=== PATIENT | female | born 1985 | race Caucasian/White ===

== ENCOUNTER 2018-08-02 05:35 | Day surgery (SDC) | payer MEDICARE ==
[2018-08-02] VITALS (12 sets, daily range): BP systolic 109–160; BP diastolic 70–93; PULSE 54–66; RESP 12–28; Ht 160 cm; Wt 86.7 kg
[~2018-08-02] VITALS: Ht 160 cm; Wt 86.7 kg
[2018-08-02] MEDS ORDERED: BUPIVACAINE 0.5%/EPI (SDV) 30 ML INJ ONE (06:58)
--- NOTE | 2018-08-02 07:20 | PREAC ---
Date/Time of Note Date/Time of Note DATE: 08/02/18 TIME: 07:17 Anesthesia Eval and Record Evaluation Time Pre-Procedure Interview DATE: 08/02/18 TIME: 07:17 Age 33 Sex female NPO: 8 hrs Preoperative diagnosis cholelithiasis Planned procedure lap avinash Past Medical History Past Medical History: Includes Pulm: Smoking Hx (quit 2 m ago), Asthma GI: Obesity Surgery & Anesthesia Issues No known issue Meds Anticoagulation: No Beta Marga within 24 hr: No Reason Beta Marga not given: Pt. not on B-Marga No Active Prescriptions or Reported Meds Meds reviewed: Yes Allergies Coded Allergies: Penicillins (Verified Allergy, Severe, ANAPHYLAXIS, 08/02/18) PER PT Allergies Reviewed: Yes Labs/Studies Labs Reviewed: Reviewed by anesthesiologist test: Negative Studies: ECG (sr), CXR (nl) Pre-procedure Exam Last vitals Vital Signs Date Temp Pulse Resp B/P (MAP) Pulse Ox O2 O2 Flow FiO2 Time Delivery Rate 08/02/18 98.0 66 18 109/70 98 Room Air 07:08 (83) Airway: Adequate thyromental dist Mallampati: Mallampati II Teeth: Normal Lung: Normal Heart: Normal ASA Physical Status ASA physical status: 2 Emergency: None Planned Anesthetic General/MAC: ETT Nerve block: TAP (bilateral) Planned Pain Management Single shot nerve block Pre-operative Attestations Prior to commencing anesthesia and surgery, the patient was re-evaluated, there was verification of: *The patient's identity *The results of appropriate recent lab work and preoperative vital signs *The above evaluation not changing prior to induction *Anesthetic plan, risk benefits, alternative and complications discussed with patient/family; questions answered; patient/family understands, accepts and wishes to proceed. MAO KAPADIA MD Aug 02, 2018 07:20
[2018-08-02] MEDS ORDERED: MEPERIDINE 25 MG INJ IV PRN (07:30)
[2018-08-02] MEDS ORDERED: ONDANSETRON 4 MG INJ IV PRN ×2 (07:30→09:00)
[2018-08-02] MEDS ORDERED: LABETALOL HCL 20MG INJ IV PRN (07:30)
[2018-08-02] MEDS ORDERED: DIPHENHYDRAMINE 50 MG INJ IV PRN (07:30)
[2018-08-02] MEDS ORDERED: hydrALAzine 20 MG INJ IV PRN (07:30)
[2018-08-02] MEDS ORDERED: HYDROmorphONE 1 MG/5 ML IV SYRINGE IV PRN ×3 (07:30)
[2018-08-02] MEDS ORDERED: KETOROLAC 30 MG INJ IV PRN ×2 (07:30→09:00)
--- NOTE | 2018-08-02 07:32 | HPN ---
Date/Time of Note Date/Time of Note DATE: 08/02/18 TIME: 07:32 Interval H&P Admission Note Pt. seen H&P reviewed: No system changes RENUKA ALVARADO MD Aug 02, 2018 07:32
[2018-08-02] MEDS ORDERED: MIDAZOLAM 1 MG/ML 2 ML INJ ONE (07:34)
[2018-08-02] MEDS ORDERED: METOCLOPRAMIDE 10 MG INJ ONE (07:34)
[2018-08-02] MEDS ORDERED: CEFAZOLIN 1 GM INJ ONE (07:45)
[2018-08-02] MEDS ORDERED: HYDROmorphONE 2 MG/ML SYG ONE (08:12)
[2018-08-02] MEDS ORDERED: ONDANSETRON 4 MG INJ ONE (08:23)
[2018-08-02] MEDS ORDERED: PROPOFOL 20 ML ONE (08:23)
[2018-08-02] MEDS ORDERED: ROCURONIUM 50 MG INJ ONE (08:23)
[2018-08-02] MEDS ORDERED: ROPIVACAINE 0.5 % 30 ML VIAL ONE (08:23)
[2018-08-02] MEDS ORDERED: NEOSTIGMINE 10 MG INJ ONE (08:23)
[2018-08-02] MEDS ORDERED: KETOROLAC 30 MG INJ ONE (08:25)
[2018-08-02] MEDS ORDERED: GLYCOPYRROLATE 0.4 MG INJ ONE (08:32)
--- NOTE | 2018-08-02 08:44 | OPR ---
Date/Time of Note Date/Time of Note DATE: 08/02/18 TIME: 08:40 Operative Report Procedure Date: Aug 02, 2018 Preoperative Diagnosis Cholelithiasis/chronic cholecystitis Postoperative Diagnosis Cholelithiasis/chronic cholecystitis Operation/Procedure Performed Laparoscopic cholecystectomy Surgeon see signature line Booth Manager None Anesthesia Type: general Anesthesiologist: MAO KAPADIA MD Estimated Blood Loss: minimal Transfusion none Specimen Gallbladder Grafts/Implants none Complications none Pt Condition Post Procedure: stable Disposition: PACU Indications The patient is a obese 33-year-old female who presented to the office with right upper quadrant abdominal pain. The patient had clinical signs and symptoms of biliary colic and chronic cholecystitis which was confirmed via an ultrasound which showed the presence of gallstones. The patient was scheduled for lapar oscopic cholecystectomy; possible open as definitive treatment to prevent further sequelae of gallstone disease which include but are not limited to: Gangrenous cholecystitis, choledocholithiasis, gallstone pancreatitis, ascending cholangitis, etc. All risks and benefits of the procedure including but not limited to: Wound infection, excessive bleeding, common bile duct injury, pos toperative biliary leak, retained common bile duct stone, injury to intra- abdominal organs, conversion to open procedure, possible need for subsequent surgeries, etc. were all explained to the patient in full detail. She fully understood and wished to proceed with the procedure. Informed consent was therefore obtained. Procedure Description The patient was brought to the operating room and placed supine on the operating table. Bilateral sequential compression devices were placed on both lower extremities. A dose of broad-spectrum perioperative intravenous antibiotics was given. After the induction of smooth general endotracheal anesthesia the patient's abdomen was prepped and draped in the standard surgical fashion. After performance of the surgical timeout a 5 mm incision was made superior to the umbilicus and a Veress needle was used to access the intra-abdominal cavity atraumatically. Pneumoperitoneum was then obtained and the Veress needle was exchanged for a 5 mm trocar through which a 5 mm laparoscope was placed. Three further working ports were then placed a 12 mm port in the sub-xiphoid region and two 5 mm ports in the right upper quadrant. All port sites were anesthetized with 0.5% Marcaine with epinephrine prior to incision. Using atraumatic graspers the gallbladder was grasped and retracted superiorly and laterally exposing the area of Ornelas's pouch. Dissection was begun in this area using a combination of blunt dissection and hook electrocautery. The cystic duct was identified as it entered straight into the neck of the gallbladder. Cystic artery was found to be plastered to the cystic duct. They were both dissected free of surrounding tissues en bloc and clipped proximally and distally x 3 en bloc and transected using EndoShears. The gallbladder was then dissected off the liver bed using electrocautery. Once completely free the gallbladder was placed in an Endo Catch bag and withdrawn through the subxiphoid port site and passed off the field as specimen. Hemostasis was then inspected for and noted to be total. The abdomen was then irrigated with several liters of warm normal saline and the irrigant returned crystal clear. The fascia of the subxiphoid port site was then reapproximated using a dania-close device. Pneumoperitoneum was then released and all remaining trochars were withdrawn under direct vision. The subcutaneous tissues were irrigated with more warm normal saline. The skin was then reapproximated using 4-0 Monocryl sutures in subcuticular fashion. The incisions were cleaned and Dermabond was applied to the incisions and the patient was awoken from anesthesia and transported to the recovery room in stable condition. A tap block was performed at the conclusion of the procedure by the anesthesiologist and will be documented separately by her. All counts were correct at the end of the case x 2. RENUKA ALVARADO MD Aug 02, 2018 08:44
[2018-08-02] MEDS ORDERED: HYDROCODONE/APAP (5/325) TAB PO PRN ×2 (09:00)
[2018-08-02] MEDS ORDERED: morphine 4 MG/ML VIAL IV PRN (09:00)
[2018-08-02] MEDS ORDERED: IBUPROFEN 600 MG TAB PO PRN (09:00)
--- NOTE | 2018-08-02 11:44 | PAC ---
Date/Time of Note Date/Time of Note DATE: 08/02/18 TIME: 11:43 Post-Anesthesia Notes Post-Anesthesia Note Last documented vital signs Vital Signs Date Temp Pulse Resp B/P (MAP) Pulse Ox O2 O2 Flow FiO2 Time Delivery Rate 08/02/18 98.6 98 18 140/79 99 10:23 08/02/18 62 16 141/81 99 Room Air 09:58 (101) Activity: WNL Respiratory function: WNL Cardiovascular function: WNL Mental status: Baseline Pain reasonably controlled: Yes Hydration appropriate: Yes Nausea/Vomiting absent: No MAO KAPADIA MD Aug 02, 2018 11:44
== END 2018-08-02 10:32 | disposition home or self-care (01) ==
LOC: SDS 05:35
PROVIDERS: ATTEND Surgery
DX: K80.10 Calculus of gallbladder with chronic cholecystitis without obstruction (principal); Z87.891 Personal history of nicotine dependence; J45.909 Unspecified asthma, uncomplicated
CPT/HCPCS: 47562; 88304; J0690; J1170; J1885; J2250; J2405; J2710; J2765; J2795